=== PATIENT | male | born 2005 | race Hispanic/Latino ===

== ENCOUNTER 2025-05-09 11:32 | Emergency (ER) | payer OTHER, SELFPAY ==
[2025-05-09 11:32] VITALS: BMI 26.0
[2025-05-09 11:43] VITALS: BP 114/75
--- NOTE | 2025-05-09 12:26 | ED.GENMED ---
History of Present Illness
General
Chief Complaint: Musculo-Skeletal Complaint
Source: other (Sent from [facility])
Exam Limitations: none
Time Seen by Provider: 05/09/25 12:22
Nursing documentation reviewed up to this point in time: agreed with
History of Present Illness
History of Present Illness:
Patient is a 19-year-old male from [facility] past medical history of autism who presents to the ER for evaluation. Staff reports patient was found to have swelling and bruising of his nose with no known injury. He does have a history of injuring
himself, hitting the back of his head but staff did not witness this particular incident. He has 2 staff members currently here with him from [facility]. They do report he is at baseline mental status.
Phy Exam
General Physical Exam
General Presentation: no apparent distress
General age: appears stated age
General Skin: warm and dry
General Habitus: normal
General Mental: alert
General Hydration: appears well hydrated
ENT Exam
ENT Exam: other (+ mild ecchymosis to nose )
Neurological Exam
Neurological Exam: alert and oriented x3
Musculoskeletal Exam
Musculoskeletal Exam: full ROM
Skin Exam
Skin Exam: normal color and warm/dry
Psychiatric Exam
Psychiatric Exam: other (baseline non verbal )
Course
Orders/Labs/Results
Orders:
Orders
05/09/25 12:29
Nasal Bones, complete 3 Views [CR Nasal Bones Comp Min 3 View] Urgent
Comment:
Reason For Exam: trauma
Vital Signs
Initial and Last Documented VS:
Initial Vital Signs
Pulse Resp Pulse Ox
79 16 98
05/09/25 11:34 05/09/25 11:34 05/09/25 11:34
Last Documented Vital Signs
Temp Pulse Resp BP Pulse Ox
98.4 F 72 22 114/75 99
05/09/25 11:43 05/09/25 12:00 05/09/25 12:00 05/09/25 11:43 05/09/25 12:27
MDM/Problems Addressed
MDM/Problems Addressed:
As documented patient is a 9-year-old male history of autism from [facility] he is nonverbal he presented with bruising swelling to the bridge of his nose with no exact injury. He is at baseline mental status as per staff members from [facility]
who are present with patient. He is in no acute distress.
Plain x-rays done of nasal bones and no acute fracture .will hold off on any additional imaging risk versus benefit not worth risk of sedation with no change in behavior.
Chronic conditions affecting care:
non verbal history
*Radiology
Radiology exam reviewed: radiology read reviewed
*Pulse Oximetry
SaO2: 99
Oxygen Mode of Delivery: Room air
Patient hypoxic: no
*Critical Care Note
Total Time (30-74mins, 75-104mins- exclusive of procedures): Not Applicable
ED Attending Note
-
Portions of this chart may have been created with voice recognition software.� Occasional wrong word or��sound alike� substitutions may have occurred due to the inherent limitations of voice recognition software.
Discharge Plan
Departure
Patient Disposition: Home (Routine Discharge)
Date of Disposition: 05/09/25
Time of Disposition: 15:20
Patient with high blood pressure during this ER visit?: No
Condition: Fair
Covid-19: Not Applicable
Discharge Problem:
Contusion of nose
Instructions: Contusion (DC)
Activity Restrictions/Additional Instructions:
Xrays if nasal bones were negative for acute fracture. Patient to be evaluated by primary care provider in the next several days. Return if any worsening of symptoms.
Interventions
Interventions:
*Risk Screen - Suicide Last Done: 05/09/25 11:37
*General Assessment Last Done: 05/09/25 14:00
*Neglect/Abuse Screening Last Done: 05/09/25 11:37
*ED- Fall Risk Assessment Last Done: 05/09/25 14:00
*ED COVID-19 Vaccine History Last Done: 05/09/25 14:00
ED-Musculoskeletal Assessment Last Done: 05/09/25 14:00
Discharge Date and Time
Print Language: CAP[place]
== END 2025-05-09 16:32 | disposition home or self-care (01) ==
LOC: EMR 11:32
PROVIDERS: EMERGENCY PHYSICIAN Emergency Medicine
DX: S00.33XA Contusion of nose, initial encounter (principal); X58.XXXA Exposure to other specified factors, initial encounter; F84.0 Autistic disorder
CPT/HCPCS: 99283; 70160